=== PATIENT | male | born 1955 | race Caucasian/White ===

== ENCOUNTER → 2021-07-08 | Day surgery (SDC) | payer MEDICARE ==
[~2021-07-08] VITALS: Ht 177.8 cm; Wt 90.0 kg
[~2021-07-08] MED LIST: ASPIRIN EC81 MG PO; CRESTOR10 MG PO; FLOMAX0.4 MG PO; GLUCOTROL10 MG PO; LOPRESSOR25 MG PO; LOVAZA1 GM PO; PRINIVIL10 MG PO; PROTONIX 40MG T40 MG PO
[2021-07-08 07:39] LABS: HCT 45.2 % (42.0-52.0); HGB 15.5 g/dl (13.2-18.0); MCH 29.8 pg (25.0-31.0); MCHC 34.3 g/dL (32.0-36.0); MCV 86.9 fL (78.0-100.0); MPV 10.8 fL (6.0-9.5); RBC 5.2 M/uL (4.70-6.00); RDW 12.7 % (11.5-14.0)
[2021-07-08 07:58] LABS: ALBUMIN 3.7 g/dL (3.4-5.0); BILIRUBIN - TOTAL 0.4 mg/dL (0.2-1.0); CREATININE 0.79 mg/dL (0.67-1.17); GLOBULIN (CALCULATION) 3.8 g/dL; POTASSIUM 3.9 mmol/L (3.5-5.1); TOTAL PROTEIN 7.5 g/dL (6.4-8.2)
== END | disposition home or self-care (01) ==
LOC: FAS 06:41
PROVIDERS: Surgery
DX: Z12.11 Encounter for screening for malignant neoplasm of colon (principal); D12.3 Benign neoplasm of transverse colon; K63.5 Polyp of colon; N40.2 Nodular prostate without lower urinary tract symptoms
CPT/HCPCS: 36415; 80053; J1610; J2250; J2704; J7120